=== PATIENT | female | born 1945 | race Caucasian/White ===

== ENCOUNTER 2019-02-24 18:15 | Inpatient (IN) | payer MEDICARE, OTHER, SELFPAY ==
[2018-07-10 15:48] VITALS: BMI 20.9
[2019-02-24] VITALS (10 sets, daily range): BP systolic 91–105; BP diastolic 56–70; PULSE 80–95; RESP 14–95; TEMP 36.4–36.9; O2SAT 96–99; BMI 19.0; BMI 19.3
--- NOTE | 2019-02-24 18:35 | CT_ITS ---
STUDY: CT ABDOMEN AND PELVIS WITH CONTRAST REASON FOR EXAM: Female, 74 years old. FEVER, BILIARY DRAIN INFECTION, HX OVARIAN CA RADIATION DOSAGE (If Supplied By Facility): CTDIvol = ( 5.13 ) mGy, DLP = ( 283.82 ) mGycm TECHNIQUE: Transaxial images were obtained from the dome of the diaphragm to the symphysis pubis without oral contrast. 100 IV Isovue 300 was administered. Sagittal and coronal images were reconstructed. Individualized dose optimization techniques were used for this CT. COMPARISON: None. FINDINGS: There is a small right pleural effusion. The visualized portions of the heart are within normal limits. There are multiple low density lesions of the liver and spleen. The largest lesion measures up to 3.8 cm. The gallbladder is contracted. A cholecystostomy tube extends to the gallbladder. No pericholecystic fluid. Normal spleen. Normal pancreas. Normal bilateral adrenal glands. No hydronephrosis. There are nonobstructing left renal calculi. Normal visualized stomach. Normal small intestine. There are surgical anastomoses of the right colon and rectum. The appendix is visualized and appears normal. Normal abdominal aorta. Normal inferior vena cava. Normal retroperitoneum. Normal urinary bladder. There is absence of the uterus consistent with a prior hysterectomy. Normal abdominal wall. Normal osseous structures. CT/Abdomen/Pelvis W IV Cont ONLY IMPRESSION: 1. No bowel obstruction or acute inflammatory process. 2. Hepatic and splenic masses compatible with metastasis. 3. Small right pleural effusion. 4. Cholecystostomy tube with nondistended gallbladder. 5. Nonobstructing left renal calculi. 6. Comparison no prior imaging studies recommended. Electronically Signed: Son Brooke MD (Brooks) at 20:36 EDT , Service support ,
--- NOTE | 2019-02-24 18:36 | RAD_ITS ---
STUDY: X-RAY CHEST REASON FOR EXAM: Female, 74 years old. Fever, patient on chemotherapy TECHNIQUE: AP COMPARISON: None. FINDINGS: Right chest port is identified with tip extending to the cavoatrial junction. The lungs are clear and expanded. There is mild thickening of the right costophrenic angle. Normal size heart. Normal mediastinum and pedrito. Normal visualized pulmonary arteries. There is atherosclerosis of the aortic arch. Normal visualized thoracic spine. Normal visualized ribs, clavicles, and shoulders. There is no demonstrated abnormality of the visualized soft tissue structures of the upper abdomen. RAD/Chest 1 View (Portable) IMPRESSION: No airspace consolidation. Trace right pleural effusion. No comparison study. Electronically Signed: Son Brooke MD (Brooks) at 19:01 EDT , Service support ,
--- NOTE | 2019-02-24 18:36 | EKG12_ITS ---
Test Reason : FEVER Blood Pressure : / mmHG Vent. Rate : 090 BPM Atrial Rate : 090 BPM P-R Int : 104 ms QRS Dur : 096 ms QT Int : 394 ms P-R-T Axes : -16 029 -62 degrees QTc Int : 481 ms Sinus rhythm with short NV RSR' or QR pattern in V1 suggests right ventricular conduction delay Nonspecific T wave abnormality Prolonged QT Abnormal ECG Confirmed by LAURE JOSEPH, HKALIF ([id number]), book editor OLIVA WATTS ([id number]) on 02/26/2019 9:31:23 AM Referred By: Ramiro Blanc Confirmed By:KHALIF KELSEY MD
--- NOTE | 2019-02-24 18:39 | ED.RN ---
NO OLD EKGS IN MUSE
[2019-02-24] MEDS: 0.9% Normal Saline 1,000 ML 999 ML IV ×2 (19:21→21:55)
[2019-02-24 19:29] LABS: Absolute Lymphocyte Count 0.58 X10^3/uL (0.83-4.51); Absolute Neutrophil Count 15.4 X10^3/uL (2.0-7.7); Basophil% 0.6 % (0-1); Hematocrit 31.6 % (37-47); Hemoglobin 10.4 g/dL (12.0-15.0); Lymphocyte # 0.58 X10^3/ul (4.0); Lymphocyte % 3.2 % (19-41); Mean Corp Hgb Conc 32.9 g/dL (32-36); Mean Corpuscular Hgb 29.9 pg (27.0-32.0); Mean Corpuscular Volume 90.8 fL (81-99); Mean Platelet Vol. 9.5 fl (6.2-12.0); Monocyte# 1.52 X10^3/uL; Monocyte% 8.5 % (0-10); NRBC Flagged by Analyzer 0 % (0-5); Neutrophil # 15.42 X10^3/uL (2.7-7.7); Neutrophil % 86.4 % (47-70); POSITIVE DIFFERENTIAL YES; Platelet Count 250 K/mm3 (150-450); RBC Distribution Width CV 18.6 % (11.6-14.6); RBC Distribution Width SD 61.8 fl (35.1-43.9); Red Blood Count 3.48 M/mm3 (4.2-5.4); White Blood Count 17.9 K/mm3 (4.4-11.0)
[2019-02-24 19:32] LABS: Differential Indicated SCAN CRITERIA MET
[2019-02-24 19:35] LABS: International Normalized Ratio 1.2; Prothrombin Time (Protime)PT. 15.3 SECONDS (11.7-14.9)
[2019-02-24 19:36] LABS: Partial Thromboplast Time 33.1 Seconds (24.1-36.2)
[2019-02-24 19:45] LABS: ALB/GLOB Ratio 0.7 RATIO (0.9-2.4); AST(SGOT) 29 U/L (15-37); Alanine Aminotransfer ALT/SGPT 26 U/L (13-56); Albumin, Serum 2.7 g/dL (3.2-5.0); Alkaline Phosphatase 335 U/L (45-117); Anion Gap 12 (5-15); BUN 9 mg/dL (7-18); BUN/Creat Ratio 14.2 RATIO (10-20); Calcium,Total 8.4 mg/dL (8.5-10.1); Chloride 103 mmol/L (98-107); Creatinine, Serum 0.63 mg/dL (0.55-1.02); EST Glomerular Filtration Rate 98 mL/min (>60); Est Glom Filt Rate - Afr Amer 119 mL/min (>60); Estimated Creatinine Clearance 37.31 ml/min; Glucose 110 mg/dL (74-106); Protein, Total 6.7 g/dL (6.4-8.2); Sodium Level 137 mmol/L (136-145)
[2019-02-24 19:54] LABS: Differential Comment SCANNED
[2019-02-24 20:12] LABS: Lactic Acid 1.2 mmol/L (0.4-2.0)
[2019-02-24 21:00] LABS: Bacteria 0 SEEN /hpf (None Seen); Mucous, Urine 0 SEEN /hpf (<or=2+); Red Blood Cells-Urine 0 SEEN /hpf (0-5); Squamous Epithelial Cells - UA 0 SEEN /hpf (5-10); White Blood Cells 0 SEEN /hpf (0-5)
[2019-02-24 21:01] LABS: Color, Urine Yellow (Yellow); Glucose, Dipstick Normal (Normal); Ketone-Dipstick 5 mg/dl (Negative); Leukocyte Esterase-Dipstick Negative /ul (Negative); Nitrite-Dipstick Negative (Negative); Occult Blood-Urine Negative /ul (Negative); Protein-Dipstick Negative (Negative); Specific Gravity, Urine 1.005 (1.002-1.030); Urine Bilirubin Dipstick Negative (Negative); Urine Clarity Clear (Clear); Urine Urobilinogen Normal (Normal); Urine pH 6.5 (5.0 - 8.0)
--- NOTE | 2019-02-24 22:10 | PCM.HP.STD ---
Problem List (1) Biliary tract infection Status: Acute History of Present Illness Date of Admission: 02/24/19 Chief Complaint: fever The patient is a 74 year old F with a significant history of metastatic ovarian cancer status post TABSO and chemotherapy who presents to the emergency department because of a fever of 102F. Associated with her symptoms is chills; poor appetite; generalized weakness; malaise. Patient has biliary tube which was placed because of gallbladder infection. She reports that the biliary tube gets change every 6 weeks. It was placed at the hospital in [place]. She reported that at this time the biliary tube is not giving out any drainage. However, she attributes her current symptoms to infection at her biliary tube stating that anytime the tube is changed she has an infection. She reports pain at her biliary tube insertion site for the last three days. On presentation the biliary tube insertion site has declined to only soreness. Also patient has chronic nausea . Reports chronic diarrhea and chronic constipation. At this point she has loose stools. At the Emergency department patient was found to have leukocytosis and bandemia. However she received Neulasta about 12 days ago. Patient follows up with Dr. Rolon, oncologist. Reportedly patient was started on ciprofloxacin 2 days ago. She reported that about a week and a half ago she received IV Levaquin which was followed followed by p.o. Levaquin. Antibiotics was given because her biliary tube got infected. At the emergency department patient was given vancomycin and Zosyn and the case was discussed with Dr. Olinda Breen, General Surgery who is interested in following patient. At the Emergency department patient was noted to have low blood pressure. However, patient reports a history of low blood pressure with blood pressures typically in the 90s. 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 Allergies magnesium Allergy (Verified 02/24/19 18:16) Nausea Sulfa (Sulfonamide Antibiotics) Allergy (Verified 02/24/19 18:17) rash hives Home Medications: Ambulatory Orders Medication Instructions Recorded diphenoxylate-atropine 2.5 1 tab PO Q6H PRN tab 04/09/18 mg-0.025 mg tablet gabapentin 300 mg capsule 300 mg PO BID #60 cap 04/09/18 Acetaminophen/Diphenhydramine 1 ea PO QHS 02/24/19 [Tylenol Pm Ex-Strength Caplet] Cholecalciferol (Vitamin D3) 5,000 unit PO DAILY 02/24/19 [Vitamin D3] Ciprofloxacin HCl 500 mg PO BID 02/24/19 Fexofenadine/Pseudoephedrine 1 ea PO DAILY 02/24/19 [Tania-D 24 Hour Tablet] Levothyroxine Sodium [Synthroid] 75 mcg PO DAILY 02/24/19 Loperamide [Imodium] 2 mg PO Q2H PRN PRN 02/24/19 Multivitamin [Daily Multiple 1 ea PO DAILY 02/24/19 Vitamin] Omeprazole 20 mg PO DAILY 02/24/19 Ondansetron HCl 8 mg PO BID PRN 02/24/19 Potassium Chloride 20 meq PO DAILY 02/24/19 Senna [Senokot] 1 tab PO DAILY 02/24/19 Sod Phos Di, [place]/K Phos [place] 250 mg PO BID 02/24/19 [Phospha 250 Neutral Tablet] Vitamin B Complex [B Complex] 1 ea PO DAILY 02/24/19 proCHLORPERazine tablet [Compazine 10 mg PO Q6H PRN PRN 02/24/19 tablet] Surgical History: Surgical History (Last Reviewed 02/24/19 @ 23:21 by Ramiro Blanc MD) Hx of ovarian cancer Z85.43 S/P BRENDA-BSO Z90.710, Z90.722, Z90.79 most large intestines removed partial stomach removal Lives: Spouse/ Significant Other Smoking Status: Never smoker Alcohol: Rare - *Family History Maternal Family History: Family History (Last Reviewed 02/25/19 @ 00:48 by Ramiro Blanc MD) Aunt Breast cancer Father Colon cancer Grandfather Colon cancer Review of Systems Constitutional: Reports: Anorexia, Chills, Fever, Malaise, Weakness, Fatigue. Denies: Weight Change HEENT: Denies: Head Aches, Sinus Congestion, Sinus Drainage Cardiovascular: Denies: Chest Pain, Palpitations Respiratory: Denies: Cough, Shortness of breath at rest, Sputum production Gastrointestinal: Reports: Abdominal Pain - Pain at biliary tube insertion site, Diarrhea, Nausea. Denies: Vomiting Genitourinary: Denies: Dysuria Musculoskeletal: Denies: Joint Pain, Joint Tenderness Skin: Denies: Rash, Wounds Neurological: Denies: Numbness, Tingling, Focal weakness Psychiatric: Denies: Anxiety, Depression, Homicidal Ideations, Suicidal Ideations Hematologic/ Lymphatic: Denies: Easy Bruising, Easy Bleeding VTE Information - Inpt Only VTE Present on Admission: No VTE Mechan Device Prophylaxis: None VTE Pharm Prophylaxis ordered?: Yes Patient Problems: Active and Suspected Problems (Last Reviewed 02/24/19 @ 23:21 by Ramiro Blanc MD) Biliary tract infection (Acute) - Physical Exam General: Alert, Oriented x3, Cooperative HEENT: Atraumatic, PERRLA, EOMI, Normocephalic Neck: Supple, No JVD, Negative Carotid Bruits Lungs: Clear to auscultation, Normal air movement Cardiovascular: Regular rate, No murmurs Abdomen: Bowel Sounds Present, Soft, Hypoactive Bowel Sounds, - Extremities: No edema, Capillary Refill Less than 3 Seconds Skin: No rashes, - - Mild redness at incision site of biliary tube; dark brown pus almost dried drainage noted. Mild redness at site; tender. Musculoskeletal: No Tenderness to Palpation of Joints or Extremities Neurological: Cranial nerves II-XII grossly intact Psych/Mental Status: Normal Affect, Appropriate Vital Signs Temp Pulse Resp BP Pulse Ox 97.6 F L 80 14 98/56 L 98 02/24/19 21:54 02/24/19 21:54 02/24/19 21:54 02/24/19 21:54 02/24/19 21:54 Oxygen Delivery Method Room Air Weight: 47.174 kg Body Mass Index (BMI) 19.0 Intake and Output for Last 24 Hours 02/22/19 02/23/19 02/24/19 23:59 23:59 23:59 Intake Total 1000 / 1000 Balance 1000 / 1000 Laboratory Tests Past 24 Hrs 02/24/19 02/24/19 02/24/19 19:15 19:15 19:15 WBC 17.9 H RBC 3.48 L Hgb 10.4 L Hct 31.6 L MCV 90.8 MCH 29.9 MCHC 32.9 RDW Std Deviation 61.8 H RDW Coeff of Dafne 18.6 H Plt Count 250 MPV 9.5 Immature Gran % (Auto) 1.300 H Neut % (Auto) 86.4 H Lymph % (Auto) 3.2 L [place] % (Auto) 8.5 Eos % (Auto) 0.0 Baso % (Auto) 0.6 Absolute Neuts (auto) 15.4 H Absolute Lymphs (auto) 0.58 L Nucleated RBC % 0 Differential Comment SCANNED Diff Path Review May foll PT 15.3 H INR 1.2 APTT 33.1 Sodium 137 Potassium 3.0 L Chloride 103 Carbon Dioxide 22.0 Anion Gap 12 BUN 9 Creatinine 0.63 Estim Creat Clear Calc 37.31 Est GFR (MDRD) Af Amer 119 Est GFR (MDRD) Non-Af 98 BUN/Creatinine Ratio 14.2 Glucose 110 H Lactic Acid Calcium 8.4 L Total Bilirubin 0.30 AST 29 ALT 26 Alkaline Phosphatase 335 H Total Protein 6.7 Albumin 2.7 L Globulin 4.0 Albumin/Globulin Ratio 0.7 L Urine Color Urine Clarity Urine pH Ur Specific [place] Urine Protein Urine Glucose (UA) Urine Ketones Urine Occult Blood Urine Nitrite Urine Bilirubin Urine Urobilinogen Ur Leukocyte Esterase Urine RBC Urine WBC Ur Squamous Epith Cells Urine Bacteria Urine Mucus 02/24/19 02/24/19 19:15 20:54 WBC RBC Hgb Hct MCV MCH MCHC RDW Std Deviation RDW Coeff of [place] Plt Count MPV Immature Gran % (Auto) Neut % (Auto) Lymph % (Auto) [place] % (Auto) Eos % (Auto) Baso % (Auto) Absolute Neuts (auto) Absolute Lymphs (auto) Nucleated RBC % Differential Comment Diff Path Review PT INR APTT Sodium Potassium Chloride Carbon Dioxide Anion Gap BUN Creatinine Estim Creat Clear Calc Est GFR (MDRD) Af Amer Est GFR (MDRD) Non-Af BUN/Creatinine Ratio Glucose Lactic Acid 1.2 Calcium Total Bilirubin AST ALT Alkaline Phosphatase Total Protein Albumin Globulin Albumin/Globulin Ratio Urine Color Yellow Urine Clarity Clear Urine pH 6.5 Ur Specific [place] 1.005 Urine Protein Negative Urine Glucose (UA) Normal Urine Ketones 5 H Urine Occult Blood Negative Urine Nitrite Negative Urine Bilirubin Negative Urine Urobilinogen Normal Ur Leukocyte Esterase Negative Urine RBC 0 SEEN Urine WBC 0 SEEN Ur Squamous Epith Cells 0 SEEN Urine Bacteria 0 SEEN Urine Mucus 0 SEEN Assessment/Plan All Active Problems (Last Reviewed 02/24/19 @ 23:21 by Ramiro Blanc MD) Biliary tract infection (Acute) The patient is a 74 year old F with a significant history of metastatic ovarian cancer status post TABSO and chemotherapy who presents emergency department because of a fever ; chills; poor appetite; generalized weakness; malaise; and pain at biliary incision site; leukocytosis and bandemia on Neulasta consistent with probable biliary tube infection. Probably acute infection of Biliary tube At the emergency department there was a pus at the biliary site insertion site. Culture and PCR of the pus. Patient received vancomycin and Zosyn at the emergency department. We will continue patient on Zosyn for now. Gentle IV hydration. Culture and blood culture was obtained in the emergency department; follow. Not classified as sepsis since leukocytosis is probably from Neulasta. Trend CBC and BMP. General Surgery consulted. Hypokalemia On presentation her potassium was 3.0. Patient received potassium 40 mg in the emergency department. We will give additional 40 mg by IV. Continue home potassium 20 mEq daily Check magnesium level History of metastatic ovarian cancer Patient follows up with Dr. Carvajal Continue outpatient follow-up. Nausea and diarrhea Reported at home she takes Imodium. Imodium ordered. Zofran as needed. Of note her QTC is 481; mildly prolonged in a woman. Insomnia Reports taking Tylenol PM at home. Tylenol pm nightly as needed ordered. DVT prophylaxis Subcutaneous heparin for now as we await Surgery to evaluate patient Code Visit Inpatient E&M: 12977 Init Hosp L3
--- NOTE | 2019-02-24 22:24 | ED.DCSUM_ITS ---
- ER Visit Summary Date of Service: 02/24/19 Chief Complaint: Fever History of Present Illness: The patient is a 74 F who presents with a fever that started this evening. Maximum temperature was 102.4. Patient has a history of metastatic ovarian cancer. Her last chemotherapy was about a week and a half a go. She also has a history of a gallbladder attack in September of this year. She had a biliary drain placed at that time at [facility]. She is concerned that might be the source of her infection. She is not having abdominal pain or GI symptoms. She is not having output from the drain. Patient was on Levaquin last week for possible infection there. Physical Examination: Afebrile and vital signs unremarkable. Blood pressure borderline 98/56. Patient is mentating well. No acute distress. HEENT exam unremarkable. Heart regular. Lungs clear. Abdomen soft and nontender. Drain is in place. Skin appears normal without jaundice. No sign of rash or infection. Test Results: White count is 17.9 and hemoglobin is 10.4. Potassium 3.0 and glucose 110. Alkaline phosphatase 335. Coags, lactate, urinalysis unremarkable. EKG showed sinus rhythm at a rate of 90 with nonspecific T wave and ST segment changes. QTc was 481. Chest x-ray showed a trace right pleural effusion. CT abdomen showed no acute findings. She has metastatic disease as well as a small right pleural effusion. The tube was visualized and a nondistended gallbladder. Emergency Department Course and Treatment: Patient was treated with IV fluids. Her work-up showed leukocytosis, and this combined with her fever is concerning for sepsis, but we do not have a source at this time. Her surgical care was discussed with Dr. Breen who was on-call. This does not appear to be a surgical process, but she will be available for consultation. She advised to clear liquid diet and antibiotic coverage. Started Zosyn and vancomycin. She will evaluate the patient tomorrow, or her partners will evaluate the patient tomorrow. Her potassium was 3.0. This was replaced. The remainder of her testing was all fairly unremarkable. She does not have signs of shock. Cultures pending. Patient was discussed with the hospitalist who will admit for further care. Treatment Plan: As above Disposition: Admission Impression: 1. Fever 2. Hypokalemia 3. Metastatic ovarian cancer This note was generated with Dragon dictation software. It may contain incorrect words, spelling, and punctuation that were not noted in review of the chart prior to signing ED Disposition - Plan for ED Patient: Referrals: Georgie Ewing MD [Primary Care Provider] -
[2019-02-24 23:49] LABS: Magnesium 1.1 mg/dL (1.6-2.6)
[2019-02-25] VITALS (7 sets, daily range): BP systolic 85–116; BP diastolic 55–58; PULSE 62–93; RESP 14–16; TEMP 36.3–36.8; O2SAT 96–99
[2019-02-25] MEDS: Potassium Chloride 10mEq/100mL 10 MEQ/100 ML IV.SOLN. 100 MEQ IV BOLUS ×4 (00:14→03:28)
[2019-02-25] MEDS: Lactated Ringers 1,000 ML 75 ML IV (00:14)
[2019-02-25 01:03] LABS: M R Staph aureus DNA By PCR Negative (Negative); Probe Check PASS; Specimen Processing Control PASS; Staph aureus DNA By PCR NEGATIVE (Negative)
[2019-02-25] MEDS: Levothyroxine 75 MCG Tablet PO (04:19)
[2019-02-25] MEDS: 0.9% NaCl VAD Flush IV ×3 (05:33→21:29)
[2019-02-25] MEDS: 0.9% NaCl IVPB Med Flush (250 mL) 15 ML IV (05:35)
[2019-02-25 05:42] LABS: Absolute Lymphocyte Count 0.65 X10^3/uL (0.83-4.51); Absolute Neutrophil Count 16.5 X10^3/uL (2.0-7.7); Basophil# 0.06 X10^3/uL; Basophil% 0.3 % (0-1); Eosinophil# 0.01 X10^3/uL; Eosinophils% 0.1 % (0-5); Lymphocyte # 0.65 X10^3/ul (4.0); Lymphocyte % 3.5 % (19-41); Mean Corp Hgb Conc 33.3 g/dL (32-36); Mean Corpuscular Hgb 30.4 pg (27.0-32.0); Mean Corpuscular Volume 91.2 fL (81-99); Mean Platelet Vol. 9.7 fl (6.2-12.0); Monocyte# 1.31 X10^3/uL; NRBC Flagged by Analyzer 0 % (0-5); Neutrophil # 16.52 X10^3/uL (2.7-7.7); Neutrophil % 87.7 % (47-70); Platelet Count 277 K/mm3 (150-450); RBC Distribution Width CV 18.6 % (11.6-14.6); RBC Distribution Width SD 62.2 fl (35.1-43.9); Red Blood Count 3.29 M/mm3 (4.2-5.4); White Blood Count 18.8 K/mm3 (4.4-11.0)
[2019-02-25 06:13] LABS: Anion Gap 8 (5-15); BUN 5 mg/dL (7-18); Calcium,Total 8.5 mg/dL (8.5-10.1); Chloride 107 mmol/L (98-107); EST Glomerular Filtration Rate 129 mL/min (>60); Est Glom Filt Rate - Afr Amer 156 mL/min (>60); Estimated Creatinine Clearance 37.81 ml/min; Glucose 85 mg/dL (74-106); Potassium 4.1 mmol/L (3.5-5.1); Sodium Level 138 mmol/L (136-145)
--- NOTE | 2019-02-25 07:17 | CON.PCM_ITS ---
- Consult Date of Consult: 02/25/19 - Reason for Consult Chief Complaint: fever, elevated WBC History of Present Illness: 74 y/o WF with metastatic ovarian cancer, status post multiple abdominal surgeries, presents with fevers. She had a cholecystotomy drain placed for cholecystitis at [facility] in September of this year. Has had multiple changes of this tube - last was 02/11/19. She has this tube intermittently draining, notes minimal drainage in past several days. Has been feeling generalized weakness and having fevers. Had been given levaquin in Dr. Rolon's office, but presented to [facility] ED with persistent fevers. Underwent CT scan which showed no intraabdominal leakage. Found to have elevated WBC of 17.9K. This morning it is 18.8K. Patient has minimal tenderness in the area, no changes from her baseline. Followed by Dr. Rolon for palliative chemotherapy. PAST MEDICAL HISTORY ? BRCA negative ?? myRisk negative ? Edema ? ? Hypercholesterolemia 2008 ? Hypothyroid 2006 ? IBS (irritable bowel syndrome) 1995 ? rapid small bowel, slow large bowel ? Ovarian cancer (HCC) - metastatic ? ? spleen, stomach, colon, fallopian tubes, diaphargam, liver cancer ? Peritoneal cyst ? peritoneal cystic mass ?? PAST?SURGICAL?HISTORY ? ABDOMINAL SURGERY HX ? 09/14/2016 ? takedown of ileostomy, enterolysis ? BSO W/ABD HYSTER & DEBULKING ? 11/06/2015 ? Right hemicolectomy, sigmoidectomy, Colorectal anastamosis, SBR, ileostomy, Gastrectomy + Bilroth2 anastamosis ? COLONOSCOPY ? 03/06/2017 ? D&C, DIAG AND/OR THERAPEUTIC ? 1968 ? SAB ? LAPAROSCOPY DIAGNOSTIC ? 2008 ? Diagnostic laparoscopy, mini laparotomy, lysis of adhesions, excision of peritoneal cystic mass. ? PARTIAL REMOVAL OF STOMACH ? 11/06/2015 ? Distal gastrectomy & Bilroth 2 anastamosis along with ovarian cancer debulking surgery ? PAST SURGICAL HISTORY OF ? 12/24/2015 ? 1.) Right IJ ultrasound guided cannulation. 2.) Bioflo MediPort insertion. ? PICC LINE INSERT/CONSULT ? 11/13/2015 ? ROTATOR CUFF REPAIR ? 2012 ? TUBAL LIGATION, ? 1973 ? MEDICATIONS: oxyCODONE-acetaminophen (PERCOCET) 5-325 mg tablet ondansetron (ZOFRAN) 8 mg tablet metoclopramide HCl (REGLAN) 10 mg tablet omeprazole (PRILOSEC) 20 mg capsule acetaminophen/diphenhydramine (TYLENOL PM ORAL) phosphorus (J-VDHP-[id number]) 250 mg tablet sennosides (SENNA LAX ORAL) potassium chloride ER (K-DUR, KLOR-CON) 20 mEq tablet Loperamide HCl (IMODIUM) 2 mg tab prochlorperazine (COMPAZINE) 10 mg tablet lipase/protease/amylase (CREON ORAL) Lactobac no.41/Bifidobact no.7 (PROBIOTIC-10 ORAL) SUMAtriptan (IMITREX) 100 mg tablet VITAMIN B COMPLEX (B COMPLEX 1 ORAL) gabapentin (NEURONTIN) 300 mg capsule levothyroxine (SYNTHROID) 75 mcg tablet MULTIVITAMIN ORAL Cholecalciferol, Vitamin D3, 5,000 unit tab Allergies: magnesium, sulfa Social history: TOB use denies ROS: Constitutional: Has fevers, denies episodes of night sweats. Neuro: Denies KEITH, vertigo. HEENT: No recent change in voice, vision or hearing. Resp: Denies cough, wheeze and hemoptysis. Denies shortness of breath at rest. CVS: Denies exertional chest pain, PND, orthopnea. Occasional leg swelling. GI:?has loose bowel movements : Denies dysuria or gross hematuria. No symptoms of bladder outlet obstruction. Endo: Denies hot flashes. Denies polyuria and polydipsia. Denies heat and cold intolerance. Musculoskeletal: Denies bone, back, joint and muscular pain. Derm: Denies rash. Denies jaundice and diffuse pruritis. Heme: Denies unusual bleeding and unexplained bruising. Psych: Normal mood. ? PHYSICAL EXAM: ? VITALS:?Blood pressure 106/56, pulse 93, temperature 98F. Thin, but well-appearing and in no acute distress. EYES: Sclerae are anicteric bilaterally. ENT: Oral mucosa is unremarkable. There is no sign of thrush or mucositis. ? NECK: Supple. LYMPHATIC: There is no palpable cervical, supraclavicular, axillary or inguinal adenopathy. ? RESPIRATORY: Inspiratory breath sounds are of normal intensity in all ferrera. No rales, wheezes or rhonchi. No exam evidence of effusion. CARDIOVASCULAR: Rhythm is regular. Normal intensity S1/S2. There is no gallop or murmur. ABDOMEN: Cholecystostomy tube in place. Right upper?quadrant tenderness. No peritoneal signs. No fluid wave. Extremities: No swelling or edema currently. ? SKIN: No jaundice or rash. NEUROLOGIC: computer security coordinator II-XII are grossly intact. No focal motor weakness. DTRs are symmetric and normal. MUSCULOSKELETAL: No muscle wasting. IMPRESSION: elevated WBC presence of cholecystotomy tube fever DISCUSSION/PLAN: I have discussed the above with the patient. There are no surgical options that I can offer her at this point She could have a tube change done by our radiologist, if she wishes. I do not believe that this will not prevent future infections (and may not help her present situation). Continue IV antibiotics, consider consult to Dr. Rolon for further options/evaluation/treatment. I have answered all questions to the patient?s satisfaction and the patient has no further questions.
[2019-02-25] MEDS: Loperamide 2 MG Capsule PO ×2 (07:48→14:20)
[2019-02-25] MEDS: Acetaminophen 325 MG Tablet 650 MG PO ×3 (07:48→21:29)
--- NOTE | 2019-02-25 10:46 | PCM.PN.HOSP ---
Patient Problems: Active and Suspected Problems (Last Reviewed 02/25/19 @ 00:48 by Ramiro Blanc MD) Biliary tract infection (Acute) Subjective: Patient seen and examined. She was admitted with complaint of fever from 102 Fahrenheit while she was at home. However not admission, fever had resolved. Patient has a history of metastatic ovarian cancer status post total abdominal hysterectomy and bilateral salpingo-oophorectomy as well as colectomy. She states she had a gallbladder infection last year but due to concerns of cancer spreading, she did have a cholecystectomy. She has had a biliary stent since then which is periodically changed at [facility]. She states it was changed about last week and subsequently noted that she was having drainage from it. She was put on Levaquin by her oncologist and she is completed the course but this had a fever overnight. He is currently on IV Zosyn. Patient has leukoplakia of left leg and feels well. He does not work. She denies any cough or chest pain, shortness of breath, abdominal pain or any pus from the site of the biliary tube insertion. 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 Review of systems otherwise negative. Vitals/I&O's: Vital Signs Temp Pulse Resp BP Pulse Ox 97.8 F 85 16 85/58 L 97 02/25/19 10:14 02/25/19 10:14 02/25/19 10:14 02/25/19 10:14 02/25/19 10:14 Oxygen Delivery Method Room Air Weight: 105 lb 6.095 oz Body Mass Index (BMI) 19.3 Intake and Output for Last 24 Hours 02/23/19 02/24/19 02/25/19 23:59 23:59 23:59 Intake Total 806.58 / 806.58 Balance 806.58 / 806.58 General: Alert, Oriented x3, Cooperative, No apparent distress HEENT: Atraumatic, PERRLA, EOMI, Normocephalic Oral: Moist Mucosa Neck: Supple, No JVD, Negative Carotid Bruits Lungs: Clear to auscultation, Normal air movement Cardiovascular: Regular rate, Regular Rhythm, Normal S1, Normal S2, No murmurs Abdomen: Bowel Sounds Present, Soft, Non Tender, Non-Distended, No Hepato-splenomegaly, - - biliary tube in place, no drainage visualised Extremities: No clubbing, No cyanosis, No edema, Capillary Refill Less than 3 Seconds Skin: No rashes, No breakdown Musculoskeletal: No Tenderness to Palpation of Joints or Extremities Lymphatic: No Cervical, Supraclavicular, or Inguinal Adenopathy Neurological: Cranial nerves II-XII grossly intact, Neuro grossly intact, Motor Exam 5/5 strength throughout Psych/Mental Status: Normal Affect, Appropriate, Alert and oriented to time, place, person, mood and affect Laboratory Results 02/24/19 19:15: WBC 17.9 H, RBC 3.48 L, Hgb 10.4 L, Hct 31.6 L, MCV 90.8, MCH 29.9, MCHC 32.9, RDW Std Deviation 61.8 H, RDW Coeff of Dafne 18.6 H, Plt Count 250, MPV 9.5, Immature Gran % (Auto) 1.300 H, Neut % (Auto) 86.4 H, Lymph % (Auto) 3.2 L, Luce % (Auto) 8.5, Eos % (Auto) 0.0, Baso % (Auto) 0.6, Absolute Neuts (auto) 15.4 H, Absolute Lymphs (auto) 0.58 L, Nucleated RBC % 0, Differential Comment SCANNED, Diff Path Review October02/24/19 19:15: PT 15.3 H, INR 1.2, APTT 33.1 02/24/19 19:15: Sodium 137, Potassium 3.0 L, Chloride 103, Carbon Dioxide 22.0, Anion Gap 12, BUN 9, Creatinine 0.63, Estim Creat Clear Calc 37.31, Est GFR (MDRD) Af Amer 119, Est GFR (MDRD) Non-Af 98, BUN/Creatinine Ratio 14.2, Glucose 110 H, Calcium 8.4 L, Total Bilirubin 0.30, AST 29, ALT 26, Alkaline Phosphatase 335 H, Total Protein 6.7, Albumin 2.7 L, Globulin 4.0, Albumin/Globulin Ratio 0.7 L 02/24/19 19:15: Lactic Acid 1.2 02/24/19 19:15: Magnesium 1.1 L 02/24/19 20:54: Urine Color Yellow, Urine Clarity Clear, Urine pH 6.5, Ur Specific [place] 1.005, Urine Protein Negative, Urine Glucose (UA) Normal, Urine Ketones 5 H, Urine Occult Blood Negative, Urine Nitrite Negative, Urine Bilirubin Negative, Urine Urobilinogen Normal, Ur Leukocyte Esterase Negative, Urine RBC 0 SEEN, Urine WBC 0 SEEN, Ur Squamous Epith Cells 0 SEEN, Urine Bacteria 0 SEEN, Urine Mucus 0 SEEN 02/24/19 22:56: S.aureus Protein A PCR NEGATIVE, MRSA (PCR) Negative 02/25/19 05:30: WBC 18.8 H, RBC 3.29 L, Hgb 10.0 L, Hct 30.0 L, MCV 91.2, MCH 30.4, MCHC 33.3, RDW Std Deviation 62.2 H, RDW Coeff of Dafne 18.6 H, Plt Count 277, MPV 9.7, Immature Gran % (Auto) 1.400 H, Neut % (Auto) 87.7 H, Lymph % (Auto) 3.5 L, Luce % (Auto) 7.0, Eos % (Auto) 0.1, Baso % (Auto) 0.3, Absolute Neuts (auto) 16.5 H, Absolute Lymphs (auto) 0.65 L, Nucleated RBC % 0 02/25/19 05:30: Sodium 138, Potassium 4.1, Chloride 107, Carbon Dioxide 23.0, Anion Gap 8, BUN 5 L, Creatinine 0.50 L, Estim Creat Clear Calc 37.81, Est GFR (MDRD) Af Amer 156, Est GFR (MDRD) Non-Af 129, BUN/Creatinine Ratio 10.0, Glucose 85, Calcium 8.5 Diagnostic Data Abdomen/Pelvis CT 02/24/19 18:35 IMPRESSION: 1. No bowel obstruction or acute inflammatory process. 2. Hepatic and splenic masses compatible with metastasis. 3. Small right pleural effusion. 4. Cholecystostomy tube with nondistended gallbladder. 5. Nonobstructing left renal calculi. 6. Comparison no prior imaging studies recommended. Electronically Signed: Son Brooke MD (Brooks) at 20:36 EDT , Service support , Chest X-Ray 02/24/19 18:36 IMPRESSION: No airspace consolidation. Trace right pleural effusion. No comparison study. Electronically Signed: Son Brooke MD (Brooks) at 19:01 EDT , Service support , Current Medications Acetaminophen (Tylenol) 650 mg PO Q6H PRN PRN PRN Reason: Mild Pain (1-3)/Temp > 100.7 F Last Admin: 02/25/19 07:48 Dose: 650 mg Documented by: Acetaminophen (Tylenol) 500 mg PO QHS PRN PRN Reason: INSOMNIA Cholecalciferol (Vitamin D) 5,000 unit PO DAILY [facility] Last Admin: 02/25/19 09:38 Dose: Not Given Documented by: Dextrose (D50w Syringe) 0 gm IV X1 PRN; Protocol PRN Reason: Hypoglycemia Diphenhydramine HCl (Benadryl) 25 mg PO QHS PRN PRN PRN Reason: INSOMNIA Gabapentin (Neurontin) 300 mg PO BID [facility] Last Admin: 02/25/19 09:38 Dose: Not Given Documented by: Glucagon () 1 mg IM .X1 PRN PRN Reason: Hypoglycemia Heparin Sodium (Beef Lung) () 50 units IV UD PRN PRN Reason: HEPARIN FLUSH Heparin Sodium (Porcine) (Heparin Na) 5,000 unit SC Q8 [facility] Last Admin: 02/25/19 05:39 Dose: Not Given Documented by: Piperacillin Sod/Tazobactam (Sod 3.375 gm/ Sodium Chloride) 50 mls @ 12.5 mls/hr IV Q8 [facility] Last Infusion: 02/25/19 06:00 Dose: 12.5 mls/hr Documented by: Lactated Ringer's () 1,000 mls @ 75 mls/hr IV .[id number] [facility] Stop: 02/25/19 12:31 Last Infusion: 02/25/19 05:35 Dose: 0 mls/hr Documented by: Sodium Chloride () 250 mls @ 15 mls/hr IV .[id number] PRN PRN Reason: SALINE FLUSH Last Infusion: 02/25/19 05:38 Dose: 0 mls/hr Documented by: Levothyroxine Sodium (Synthroid) 75 mcg PO DAILY@0600 [facility] Last Admin: 02/25/19 04:19 Dose: 75 mcg Documented by: Loperamide HCl (Imodium) 2 mg PO Q2H PRN PRN PRN Reason: LOOSE STOOLS Last Admin: 02/25/19 07:48 Dose: 2 mg Documented by: Multivitamins (Allbee W/C Caplet, Thera B Comp/[facility]) [facility] Admin: 02/25/19 07:37 Dose: Not Given Documented by: [facility]amin) [facility] Last Admin: 02/25/19 07:37 Dose: Not Given Documented by: Ondansetron HCl (Zofran) 4 mg IV Q8H PRN PRN PRN Reason: NAUSEA/VOMITING Oxycodone HCl (Oxyir) 5 mg PO Q6H PRN PRN PRN Reason: SEVERE PAIN (6-1010) Pantoprazole Sodium (Protonix) 20 mg PO DAILY [facility] Last Admin: 02/25/19 09:38 Dose: Not Given Documented by: Potassium Chloride [facility]Dur) [facility] Last Admin: 02/25/19 07:48 Dose: 20 meq Documented by: Prochlorperazine Maleate (Compazine Tablet) 10 mg PO Q6H PRN PRN PRN Reason: NAUSEA Sodium Chloride () 10 - 40 ml IV UD PRN PRN Reason: VAD FLUSH Last Admin: 02/25/19 05:33 Dose: 20 ml Documented by: Medical Necessity - Tobacco Use Smoking Status: Never smoker Assessment/Plan All Active Problems (Last Reviewed 02/25/19 @ 00:48 by Ramiro Blanc MD) Biliary tract infection (Acute) 1. Acute infection of biliary tube. per admitting note, there was pus at site of biliary insertion in ED samples of pus were sent to lab for culture received IV vancomycin and zosyn in ED, currently on only IV zosyn blood cultures also pending wbc is high, at 18.8 today; patient did receive Neulasta ~ 2 weeks ago, when her wbc was 1, according to her. Therefore, I find it difficult to believe that current elevated white cell count is only due to effect of Neulasta. Infection is likely playing a component and elevated WBC. Continue IV antibiotics for now. General surgery consulted and did not think that they should take out the tube for now. 2. Hypokalemia: Potassium was 3 on admission and is now 4.1. Will monitor. 3. Metastatic ovarian cancer: Stable. Follows up with Dr. Rolon. States she is due to have chemotherapy tomorrow. However patient counseled that this would likely not, in light of her acute current infection. 4. 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 5. Asymptomatic hypotension: Blood pressure is 85/58 and has been running in the 90s. Patient states that this is how her blood pressure usually runs and is normal for her. Will monitor closely. 6. Hypothyroidism: On Synthroid. DVT prophylaxis: Lovenox Code Visit Inpatient E&M: 63853 Subs Hosp L3
--- NOTE | 2019-02-25 11:45 | CASEMGMT ---
RN PABLO MAINTENANCE MAN CM to room to meet with patient for initial transition planning/care coordination assessment. JUAN SHAH introduced self and role at [facility]. Pt voices understanding and consents to assessment at this time. Pt resting in bed in no distress at this time. Pt is A/O at this time and answers all questions appropriately. Care providers, pharmacy, and demographics verified/updated at this time. PCP: Gildardo Specialists: Ольга Preferred Pharmacy: [facility] in [place] Insurance: TETE, AARP Prescription Benefit: Silver Scripts Living Will/HPOA: Has both LW and HCPOA, who is her , Sina. States will see if they can be brought in to [facility] to be placed on file. LNOK: Living Arrangements: Lives with her in 2-story home. FFSU. States is independent w/ADL's. changes her wound patch and assists w/cleaning and meals. Transportation: Pt states drives self and states no transportation concerns at this time. will drive her home @ D/C. DME: Denies using any DME and denies needs. HHC/SNF: No history of either, denies needs, and no needs identified. Pt wishes to return home and states has no concerns with going home at time of discharge. CM to follow for any discharge planning/needs. Pt voices no further concerns/needs at this time. Advised pt to ask for CM if any further questions/concerns/needs arise. Voices understanding. PLAN: Home w/spousal support and discharge plans in place. Kalpana OCHOA RN, CM
[2019-02-25 13:26] LABS: Pathologist Review Reviewed
--- NOTE | 2019-02-25 13:51 | CON.PCM_ITS ---
Reason for Consult: fever Consulted by: Dr. Neff History of Present Illness: The patient is a 74 year old F with metastatic ovarian cancer, on palliative chemo via R chest port, has biliary drain in place chronically. Last chemo about 2 weeks ago, given neulasta. Developed fever s/p chemo, given levaquin then course of cipro. Drain was changed the day prior to chemo. Finished abx on 02/18, fever at home again on 02/22, restarted cipro, came to hospital, admitted on zosyn after dose of vanc. Feeling well, wants to go home, no abd pain, no drainage from tube, no n/v/d, no focal complaints. No fever here. Full ROS performed and neg except as noted above. No issues with port. - Medical History Surgical History: reviewed Allergies/Adverse Reactions: Allergies magnesium Allergy (Verified 02/24/19 18:16) Nausea Sulfa (Sulfonamide Antibiotics) Allergy (Verified 02/24/19 18:17) rash hives Home Medications: Ambulatory Orders Medication Instructions Recorded diphenoxylate-atropine 2.5 1 tab PO Q6H PRN tab 04/09/18 mg-0.025 mg tablet gabapentin 300 mg capsule 300 mg PO BID #60 cap 04/09/18 Acetaminophen/Diphenhydramine 1 ea PO QHS 02/24/19 [Tylenol Pm Ex-Strength Caplet] Cholecalciferol (Vitamin D3) 5,000 unit PO DAILY 02/24/19 [Vitamin D3] Ciprofloxacin HCl 500 mg PO BID 02/24/19 Fexofenadine/Pseudoephedrine 1 ea PO DAILY 02/24/19 [Tania-D 24 Hour Tablet] Levothyroxine Sodium [Synthroid] 75 mcg PO DAILY 02/24/19 Loperamide [Imodium] 2 mg PO Q2H PRN PRN 02/24/19 Multivitamin [Daily Multiple 1 ea PO DAILY 02/24/19 Vitamin] Omeprazole 20 mg PO DAILY 02/24/19 Ondansetron HCl 8 mg PO BID PRN 02/24/19 Potassium Chloride 20 meq PO DAILY 02/24/19 Senna [Senokot] 1 tab PO DAILY 02/24/19 Sod Phos Di, Collin/K Phos [place] 250 mg PO BID 02/24/19 [Phospha 250 Neutral Tablet] Vitamin B Complex [B Complex] 1 ea PO DAILY 02/24/19 proCHLORPERazine tablet [Compazine 10 mg PO Q6H PRN PRN 02/24/19 tablet] Oxycodone HCl/Acetaminophen 5 - 325 mg PO BID PRN 02/25/19 [Percocet 5-325] - Social History SMOKING STATUS:: Never smoker Vital Signs Temp Pulse Resp BP Pulse Ox 98.2 F 80 14 116/56 L 99 02/25/19 11:23 02/25/19 11:23 02/25/19 11:23 02/25/19 11:23 02/25/19 11:23 Oxygen Delivery Method Room Air Weight: 47.8 kg Body Mass Index (BMI) 19.3 Microbiology Past 72 Hours 02/24/19 22:36 Gram Stain - Final Drainage Tube Laboratory Tests Past 24 Hrs 02/24/19 02/24/19 02/24/19 19:15 19:15 19:15 WBC 17.9 H RBC 3.48 L Hgb 10.4 L Hct 31.6 L MCV 90.8 MCH 29.9 MCHC 32.9 RDW Std Deviation 61.8 H RDW Coeff of Dafne 18.6 H Plt Count 250 MPV 9.5 Immature Gran % (Auto) 1.300 H Neut % (Auto) 86.4 H Lymph % (Auto) 3.2 L Collin % (Auto) 8.5 Eos % (Auto) 0.0 Baso % (Auto) 0.6 Absolute Neuts (auto) 15.4 H Absolute Lymphs (auto) 0.58 L Nucleated RBC % 0 Differential Comment SCANNED Diff Path Review Reviewed PT 15.3 H INR 1.2 APTT 33.1 Sodium 137 Potassium 3.0 L Chloride 103 Carbon Dioxide 22.0 Anion Gap 12 BUN 9 Creatinine 0.63 Estim Creat Clear Calc 37.31 Est GFR (MDRD) Af Amer 119 Est GFR (MDRD) Non-Af 98 BUN/Creatinine Ratio 14.2 Glucose 110 H Lactic Acid Calcium 8.4 L Magnesium Total Bilirubin 0.30 AST 29 ALT 26 Alkaline Phosphatase 335 H Total Protein 6.7 Albumin 2.7 L Globulin 4.0 Albumin/Globulin Ratio 0.7 L Urine Color Urine Clarity Urine pH Ur Specific [place] Urine Protein Urine Glucose (UA) Urine Ketones Urine Occult Blood Urine Nitrite Urine Bilirubin Urine Urobilinogen Ur Leukocyte Esterase Urine RBC Urine WBC Ur Squamous Epith Cells Urine Bacteria Urine Mucus S.aureus Protein A PCR MRSA (PCR) 02/24/19 02/24/19 02/24/19 19:15 19:15 20:54 WBC RBC Hgb Hct MCV MCH MCHC RDW Std Deviation RDW Coeff of Dafne Plt Count MPV Immature Gran % (Auto) Neut % (Auto) Lymph % (Auto) Collin % (Auto) Eos % (Auto) Baso % (Auto) Absolute Neuts (auto) Absolute Lymphs (auto) Nucleated RBC % Differential Comment Diff Path Review PT INR APTT Sodium Potassium Chloride Carbon Dioxide Anion Gap BUN Creatinine Estim Creat Clear Calc Est GFR (MDRD) Af Amer Est GFR (MDRD) Non-Af BUN/Creatinine Ratio Glucose Lactic Acid 1.2 Calcium Magnesium 1.1 L Total Bilirubin AST ALT Alkaline Phosphatase Total Protein Albumin Globulin Albumin/Globulin Ratio Urine Color Yellow Urine Clarity Clear Urine pH 6.5 Ur Specific [place] 1.005 Urine Protein Negative Urine Glucose (UA) Normal Urine Ketones 5 H Urine Occult Blood Negative Urine Nitrite Negative Urine Bilirubin Negative Urine Urobilinogen Normal Ur Leukocyte Esterase Negative Urine RBC 0 SEEN Urine WBC 0 SEEN Ur Squamous Epith Cells 0 SEEN Urine Bacteria 0 SEEN Urine Mucus 0 SEEN S.aureus Protein A PCR MRSA (PCR) 02/24/19 02/25/19 02/25/19 22:56 05:30 05:30 WBC 18.8 H RBC 3.29 L Hgb 10.0 L Hct 30.0 L MCV 91.2 MCH 30.4 MCHC 33.3 RDW Std Deviation 62.2 H RDW Coeff of Dafne 18.6 H Plt Count 277 MPV 9.7 Immature Gran % (Auto) 1.400 H Neut % (Auto) 87.7 H Lymph % (Auto) 3.5 L [place]lin % (Auto) 7.0 Eos % (Auto) 0.1 Baso % (Auto) 0.3 Absolute Neuts (auto) 16.5 H Absolute Lymphs (auto) 0.65 L Nucleated RBC % 0 Differential Comment Diff Path Review PT INR APTT Sodium 138 Potassium 4.1 Chloride 107 Carbon Dioxide 23.0 Anion Gap 8 BUN 5 L Creatinine 0.50 L Estim Creat Clear Calc 37.81 Est GFR (MDRD) Af Amer 156 Est GFR (MDRD) Non-Af 129 BUN/Creatinine Ratio 10.0 Glucose 85 Lactic Acid Calcium 8.5 Magnesium Total Bilirubin AST ALT Alkaline Phosphatase Total Protein Albumin Globulin Albumin/Globulin Ratio Urine Color Urine Clarity Urine pH Ur Specific [place] Urine Protein Urine Glucose (UA) Urine Ketones Urine Occult Blood Urine Nitrite Urine Bilirubin Urine Urobilinogen Ur Leukocyte Esterase Urine RBC Urine WBC Ur Squamous Epith Cells Urine Bacteria Urine Mucus S.aureus Protein A PCR NEGATIVE MRSA (PCR) Negative - Other Studies Radiology: [] reviewed Other Studies: [] Route of nutrition/ use of supplements: [] Nutritional Intake: [] IV Site: [] Coles Catheter: [] - Physical Exam General: Alert, Oriented x3, Cooperative, No apparent distress HEENT: Atraumatic, PERRLA, EOMI Neck: Supple, No Nodes Lungs: Clear to auscultation, Normal air movement Cardiovascular: Regular rate, Regular Rhythm, No murmurs Abdomen: Soft, Non Tender, Non-Distended, - - Drain in RUQ with no redness Extremities: No edema Skin: No rashes IV Site: Central Line, without redness Musculoskeletal: No Tenderness to Palpation of Joints or Extremities Neurological: Cranial nerves II-XII grossly intact - Assessment/Plan Antibiotics: [] Assessment/Plan: [] Active and Suspected Problems (Last Reviewed 02/25/19 @ 00:48 by Ramiro Blanc MD) Biliary tract infection (Acute) Fever at home with recent chemo, port and biliary drain in place - drain cx showing GPCs on gram stain. Cont zosyn. Staph aureus pcr neg. Will follow, thank you.
[2019-02-25] MEDS: Heparin Injection (Vial) 5,000 UNIT/ML VIAL 5000 UNIT SC (14:20)
[2019-02-25] MEDS: oxyCODONE 5 MG Tablet PO ×2 (14:20→21:28)
[2019-02-25] MEDS: proCHLORPERazine 5 MG Tablet 10 MG PO (18:54)
[2019-02-25] MEDS: SOD PHOS DI, MONO/K PHOS MONO 250 MG TABLET PO (20:20)
[2019-02-26 02:06] VITALS: BP 105/60; PULSE 83; RESP 16; TEMP 36.6; O2SAT 97
[2019-02-26] MEDS: oxyCODONE 5 MG Tablet PO (03:30)
[2019-02-26 05:40] LABS: Absolute Lymphocyte Count 0.83 X10^3/uL (0.83-4.51); Absolute Neutrophil Count 10.4 X10^3/uL (2.0-7.7); Basophil# 0.05 X10^3/uL; Basophil% 0.4 % (0-1); Eosinophil# 0.02 X10^3/uL; Eosinophils% 0.2 % (0-5); Hematocrit 29.4 % (37-47); Hemoglobin 9.7 g/dL (12.0-15.0); Lymphocyte # 0.83 X10^3/ul (4.0); Lymphocyte % 6.7 % (19-41); Mean Corpuscular Hgb 30.2 pg (27.0-32.0); Mean Corpuscular Volume 91.6 fL (81-99); Mean Platelet Vol. 9.3 fl (6.2-12.0); Monocyte# 0.95 X10^3/uL; Monocyte% 7.7 % (0-10); NRBC Flagged by Analyzer 0 % (0-5); Neutrophil # 10.36 X10^3/uL (2.7-7.7); Neutrophil % 83.9 % (47-70); Platelet Count 326 K/mm3 (150-450); RBC Distribution Width CV 18.9 % (11.6-14.6); Red Blood Count 3.21 M/mm3 (4.2-5.4); White Blood Count 12.3 K/mm3 (4.4-11.0)
[2019-02-26] MEDS: Levothyroxine 75 MCG Tablet PO (05:46)
[2019-02-26] MEDS: Heparin Injection (Vial) 5,000 UNIT/ML VIAL 5000 UNIT SC (05:46)
[2019-02-26] MEDS: 0.9% NaCl VAD Flush IV ×2 (05:48→11:01)
[2019-02-26] MEDS: Ondansetron 4 MG/2 ML Vial IV (05:56)
[2019-02-26 06:09] LABS: Anion Gap 7 (5-15); BUN 10 mg/dL (7-18); Calcium,Total 8.7 mg/dL (8.5-10.1); Chloride 107 mmol/L (98-107); Creatinine, Serum 0.56 mg/dL (0.55-1.02); EST Glomerular Filtration Rate 114 mL/min (>60); Est Glom Filt Rate - Afr Amer 138 mL/min (>60); Estimated Creatinine Clearance 37.81 ml/min; Glucose 73 mg/dL (74-106); Potassium 3.4 mmol/L (3.5-5.1); Sodium Level 140 mmol/L (136-145)
[2019-02-26] MEDS: Senna Tablet 1 TABLET PO (06:14)
[2019-02-26 07:08] VITALS: O2SAT 98
[2019-02-26 07:55] VITALS: BP 107/61; PULSE 84; RESP 16; TEMP 37.3; O2SAT 94
[2019-02-26] MEDS: Acetaminophen 325 MG Tablet 650 MG PO (08:02)
[2019-02-26] MEDS: Metoclopramide 10 MG Tablet PO (09:58)
--- NOTE | 2019-02-26 09:59 | PN.ID_ITS ---
Patient Problems: Active and Suspected Problems (Last Reviewed 02/25/19 @ 00:48 by Ramiro Blanc MD) Biliary tract infection (Acute) Subjective: Feeling well, no fever, no abd pain. - Physical Exam General: Alert, Cooperative Lungs: Clear to auscultation, Normal air movement Cardiovascular: Regular rate, Regular Rhythm Abdomen: Soft, Non Tender, Non-Distended Skin: No rashes Vital Signs Temp Pulse Resp BP Pulse Ox 99.1 F 84 16 107/61 94 02/26/19 07:55 02/26/19 07:55 02/26/19 07:55 02/26/19 07:55 02/26/19 07:55 Oxygen Delivery Method Room Air Weight: 47.8 kg Body Mass Index (BMI) 19.3 Intake and Output for Last 24 Hours 02/24/19 02/25/19 02/26/19 23:59 23:59 23:59 Intake Total / 74.58 / 74.58 Balance 74.58 / 74.58 Microbiology Past 72 Hours 02/24/19 20:54 Urine Culture - Final Urine, Clean Catch Culture exhibits no growth. 02/24/19 22:36 Gram Stain - Final Drainage Tube Laboratory Tests Past 24 Hrs 02/24/19 02/26/19 02/26/19 19:15 05:30 05:30 WBC 12.3 H RBC 3.21 L Hgb 9.7 L Hct 29.4 L MCV 91.6 MCH 30.2 MCHC 33.0 RDW Std Deviation 64.0 H RDW Coeff of Dafne 18.9 H Plt Count 326 MPV 9.3 Immature Gran % (Auto) 1.100 H Neut % (Auto) 83.9 H Lymph % (Auto) 6.7 L O'Brien % (Auto) 7.7 Eos % (Auto) 0.2 Baso % (Auto) 0.4 Absolute Neuts (auto) 10.4 H Absolute Lymphs (auto) 0.83 Nucleated RBC % 0 Diff Path Review Reviewed Sodium 140 Potassium 3.4 L Chloride 107 Carbon Dioxide 26.0 Anion Gap 7 BUN 10 Creatinine 0.56 Estim Creat Clear Calc 37.81 Est GFR (MDRD) Af Amer 138 Est GFR (MDRD) Non-Af 114 BUN/Creatinine Ratio 18.0 Glucose 73 L Calcium 8.7 Medical Necessity - Tobacco Use Smoking Status: Never smoker Route of nutrition/ use of supplements: [] Nutritional Intake: [] IV Site: [] Coles Catheter: [] - Assessment/Plan Antibiotics: [] Assessment/Plan: [] Active and Suspected Problems (Last Reviewed 02/25/19 @ 00:48 by Ramiro Blanc MD) Biliary tract infection (Acute) Fever at home with recent chemo, port and biliary drain in place - drain cx showing GPCs on gram stain but this is not a sterile source. On zosyn. Ok for home on 4 days of po levaquin 500mg qday. Will follow, d/w Dr. Neff
--- NOTE | 2019-02-26 10:48 | DCINST_ITS ---
- Discharge Diagnoses Current Active Problems: Current Active and Chronic Problems (Last Reviewed 02/25/19 @ 00:48 by Ramiro Blanc MD) Biliary tract infection (Acute) You will use the following diet at home:: Cardiac Your food should be the consistency of: Regular Your liquids should be the consistency of: Regular/Thin Weight Bearing Status: Weight bearing as tolerated Call your doctor if your incision/area has: Increased Pain/ Swelling, Increased Redness, Foul Smelling Discharge Call your doctor if you observe: Fever of 101 or Higher, - - worsening abdominal pain Additional Instructions: follow up with oncology- Dr Rolon to reschedule chemotherapy Allergies/Adverse Reactions: Allergies magnesium Allergy (Verified 02/24/19 18:16) Nausea Sulfa (Sulfonamide Antibiotics) Allergy (Verified 02/24/19 18:17) rash hives Medications to take at Discharge diphenoxylate-atropine 2.5 mg-0.025 mg tablet 1 tab PO Q6H PRN tab 04/09/18 gabapentin 300 mg capsule 300 mg PO BID #60 cap 04/09/18 Acetaminophen/Diphenhydramine [Tylenol Pm Ex-Strength Caplet] 1 ea PO QHS 02/24/19 Cholecalciferol (Vitamin D3) [Vitamin D3] 5,000 unit PO DAILY 02/24/19 Fexofenadine/Pseudoephedrine [Tania-D 24 Hour Tablet] 1 ea PO DAILY 02/24/19 Levothyroxine Sodium [Synthroid] 75 mcg PO DAILY 02/24/19 Loperamide [Imodium] 2 mg PO Q2H PRN PRN 02/24/19 Multivitamin [Daily Multiple Vitamin] 1 ea PO DAILY 02/24/19 Omeprazole 20 mg PO DAILY 02/24/19 Ondansetron HCl 8 mg PO BID PRN 02/24/19 Potassium Chloride 20 meq PO DAILY 02/24/19 Senna [Senokot] 1 tab PO DAILY 02/24/19 Sod Phos Di, [place]/K Phos [place] [Phospha 250 Neutral Tablet] 250 mg PO BID 02/24/19 Vitamin B Complex [B Complex] 1 ea PO DAILY 02/24/19 proCHLORPERazine tablet [Compazine tablet] 10 mg PO Q6H PRN PRN 02/24/19 Oxycodone HCl/Acetaminophen [Percocet 5-325] 5 - 325 mg PO BID PRN 02/25/19 Metoclopramide [Reglan] 10 mg PO BID PRN 02/26/19 levoFLOXacin tablet [Levaquin tablet] 500 mg PO DAILY #4 tab 02/26/19 The following prescriptions were given: levoFLOXacin tablet [Levaquin tablet] 500 mg PO DAILY #4 tab Transmission Status: Pending to [id number] Primary Care Physician: Georgie Ewing MD [Primary Care Provider] - Please follow up with your Primary Care Physician in: 1-2 weeks Test Results: Test results from this visit will be discussed in further detail at your follow- up appointment, if applicable. Please Follow Up With: Ruddy Rolon DO When: 1-2 weeks Please Follow Up With: Faizan Levin MD When: 1-2 weeks Proposed Discharge Date: 02/26/19
--- NOTE | 2019-02-26 10:50 | PCM.DC.SUM ---
Discharge Date and Diagnosis Date of Admission: 02/24/19 Date of Discharge: 02/26/19 - Primary Discharge Diagnosis Active and Suspected Problems (Last Reviewed 02/25/19 @ 00:48 by Ramiro Blanc MD) Biliary tract infection (Acute) Hospital Course and Treatment Imaging Results: Diagnostic Data Abdomen/Pelvis CT 02/24/19 18:35 IMPRESSION: 1. No bowel obstruction or acute inflammatory process. 2. Hepatic and splenic masses compatible with metastasis. 3. Small right pleural effusion. 4. Cholecystostomy tube with nondistended gallbladder. 5. Nonobstructing left renal calculi. 6. Comparison no prior imaging studies recommended. Electronically Signed: Son Brooke MD (Brooks) at 20:36 EDT , Service support , Chest X-Ray 02/24/19 18:36 IMPRESSION: No airspace consolidation. Trace right pleural effusion. No comparison study. Electronically Signed: Son Brooke MD (Brooks) at 19:01 EDT , Service support , infectious disease- Dr Levin Operations: None Procedures: None Summary of Care Provided: The patient is a 74 year old F with a past medical history significant for metastatic ovarian cancer status post total abdominal salpingo-oophorectomy and chemotherapy. She was admitted through the ED on 02/24/2019 with a complaint of fever of 102 Fahrenheit. Fever had occurred at home and she had assisted chills, poor appetite and generalized weakness. Patient states she had a biliary tube placed about a year ago on account of gallbladder infection and says the tube were changed every 6 weeks. Patient is a gallbladder was not removed at the time of the gallbladder infection because there was concern that the cancer would spread. She also stated that every time she had the biliary tube change she always got an infection. During this admission, she admitted to having recently had a biliary tube changed and subsequently she developed a fever and was put on p.o. ciprofloxacin and then subsequently IV and then p.o. Levaquin by her oncologist. She also stated she had received Neulasta about 2 weeks prior to admission. In the ED, she was found to have elevated white cell count and bandemia and she was started on IV vancomycin and Zosyn. General surgery was consulted about biliary tube but decided on conservative management for now. Patient's white cell count trended down and she did not have any fever during this admission. Infectious disease was also consulted. Wound swab outside of biliary tube showed 2+ cocci on Gram stain and wound culture showed 3+ coagulase negative staph. Urine culture showed no growth and blood culture was pending at time of discharge. Patient remained afebrile and stable and was discharged 07/07/2018 with a prescription for p.o. Levaquin for 4 more days per ID. She is to follow-up with her oncologist and primary care doctor as well as infectious disease. Patient seen and examined prior to discharge. She complained of some abdominal pain due to constipation but this was relieved with bowel movement. She denied any fever or chills and denied any discharge from the biliary tube site. Review of systems is otherwise negative. Labs and vitals reviewed. Home medications reviewed and reconciled. o/e: Vital Signs Height 5 ft 2 in Weight: 105 lb 6.095 oz Weight in Pounds 105.4 lbs Pulse Ox 99 Temperature 99.1 F Pulse Rate 72 Respiratory Rate 16 Blood Pressure 93/53 Blood Pressure Position Semi-Fowlers [] General: Alert, Oriented x3, Cooperative, No apparent distress HEENT: Atraumatic, PERRLA, EOMI, Normocephalic Oral: Moist Mucosa Neck: Supple, No JVD, Negative Carotid Bruits Lungs: Clear to auscultation, Normal air movement Cardiovascular: Regular rate, Regular Rhythm, Normal S1, Normal S2, No murmurs Abdomen: Bowel Sounds Present, Soft, Non Tender, Non-Distended, No Hepato-splenomegaly, - - biliary tube in place Extremities: No clubbing, No cyanosis, No edema, Capillary Refill Less than 3 Seconds Skin: No rashes, No breakdown Musculoskeletal: No Tenderness to Palpation of Joints or Extremities Lymphatic: No Cervical, Supraclavicular, or Inguinal Adenopathy Neurological: Cranial nerves II-XII grossly intact, Neuro grossly intact, Motor Exam 5/5 strength throughout Psych/Mental Status: Normal Affect, Appropriate, Alert and oriented to time, place, person, mood and affect Patient was given a prescription for p.o. Levaquin 500 mg daily for 4 days. - Physical Exam Vital Signs Temp Pulse Resp BP Pulse Ox 99.1 F 84 16 107/61 94 02/26/19 07:55 02/26/19 07:55 02/26/19 07:55 02/26/19 07:55 02/26/19 07:55 Oxygen Delivery Method Room Air Weight: 105 lb 6.095 oz Body Mass Index (BMI) 19.3 Intake and Output for Last 24 Hours 02/24/19 02/25/19 02/26/19 23:59 23:59 23:59 Intake Total / 100.00 / 100.00 Balance 100.00 / 100.00 Microbiology Past 72 Hours 02/24/19 20:54 Urine Culture - Final Urine, Clean Catch Culture exhibits no growth. 02/24/19 22:36 Gram Stain - Final Drainage Tube Laboratory Tests Past 24 Hrs 02/24/19 02/26/19 02/26/19 19:15 05:30 05:30 WBC 12.3 H RBC 3.21 L Hgb 9.7 L Hct 29.4 L MCV 91.6 MCH 30.2 MCHC 33.0 RDW Std Deviation 64.0 H RDW Coeff of [place] 18.9 H Plt Count 326 MPV 9.3 Immature Gran % (Auto) 1.100 H Neut % (Auto) 83.9 H Lymph % (Auto) 6.7 L [place] % (Auto) 7.7 Eos % (Auto) 0.2 Baso % (Auto) 0.4 Absolute Neuts (auto) 10.4 H Absolute Lymphs (auto) 0.83 Nucleated RBC % 0 Diff Path Review Reviewed Sodium 140 Potassium 3.4 L Chloride 107 Carbon Dioxide 26.0 Anion Gap 7 BUN 10 Creatinine 0.56 Estim Creat Clear Calc 37.81 Est GFR (MDRD) Af Amer 138 Est GFR (MDRD) Non-Af 114 BUN/Creatinine Ratio 18.0 Glucose 73 L Calcium 8.7 Discharge Diet: Low fat/ Low Cholesterol Weight Bearing Status: Weight bearing as tolerated Call your doctor if your incision/area has: Increased Pain/ Swelling, Increased Redness, Foul Smelling Discharge Call your doctor if you observe: Fever of 101 or Higher, - - worsening abdominal pain Home Medications: Medications to take at Discharge diphenoxylate-atropine 2.5 mg-0.025 mg tablet 1 tab PO Q6H PRN tab 04/09/18 gabapentin 300 mg capsule 300 mg PO BID #60 cap 04/09/18 Acetaminophen/Diphenhydramine [Tylenol Pm Ex-Strength Caplet] 1 ea PO QHS 02/24/19 Cholecalciferol (Vitamin D3) [Vitamin D3] 5,000 unit PO DAILY 02/24/19 Fexofenadine/Pseudoephedrine [Tania-D 24 Hour Tablet] 1 ea PO DAILY 02/24/19 Levothyroxine Sodium [Synthroid] 75 mcg PO DAILY 02/24/19 Loperamide [Imodium] 2 mg PO Q2H PRN PRN 02/24/19 Multivitamin [Daily Multiple Vitamin] 1 ea PO DAILY 02/24/19 Omeprazole 20 mg PO DAILY 02/24/19 Ondansetron HCl 8 mg PO BID PRN 02/24/19 Potassium Chloride 20 meq PO DAILY 02/24/19 Senna [Senokot] 1 tab PO DAILY 02/24/19 Sod Phos Di, [place]/K Phos [place] [Phospha 250 Neutral Tablet] 250 mg PO BID 02/24/19 Vitamin B Complex [B Complex] 1 ea PO DAILY 02/24/19 proCHLORPERazine tablet [Compazine tablet] 10 mg PO Q6H PRN PRN 02/24/19 Oxycodone HCl/Acetaminophen [Percocet 5-325] 5 - 325 mg PO BID PRN 02/25/19 Metoclopramide [Reglan] 10 mg PO BID PRN 02/26/19 levoFLOXacin tablet [Levaquin tablet] 500 mg PO DAILY #4 tab 02/26/19 Following Prescrptions Were Given to Patient: levoFLOXacin tablet [Levaquin tablet] 500 mg PO DAILY #4 tab Transmission Status: Received by [employer] [id number] Primary Care Physician: Georgie Ewing MD [Primary Care Provider] - Please follow up with your Primary Care Physician in: 1-2 weeks Please Follow Up With: Ruddy Rolon DO When: 1-2 weeks Please Follow Up With: Faizan Levin MD When: 1-2 weeks Disposition: Home Minutes spent on discharge:: 35 Patient Condition:: Stable Medical Necessity - Tobacco Use Smoking Status: Never smoker Meaningful Use Info Meaningful Use Diagnoses (Choose all that apply): None applicable Code Visit Inpatient E&M: 02162 Disch Hosp
--- NOTE | 2019-02-26 11:25 | PHA.DC.MC ---
Pharmacy Service has performed discharge medication reconciliation and counseling for this patient. The patient's discharge medication list was reviewed for discrepancies and discrepancies were resolved. The patient was counseled on the following discharge medications and changes in medications for homegoing were reviewed. 1. LEVOFLOXACIN 500MT PO DAILY X4 DAYS The Reason for Use, instructions for use, and potential side effects were reviewed for all new medications. The patient's questions regarding all of their medications were answered. The patient was able to verbally demonstrate an understanding of their discharge medications. Home Medications diphenoxylate-atropine 2.5 mg-0.025 mg tablet 1 tab PO Q6H PRN tab 04/09/18 gabapentin 300 mg capsule 300 mg PO BID #60 cap 04/09/18 Acetaminophen/Diphenhydramine [Tylenol Pm Ex-Strength Caplet] 1 ea PO QHS 02/24/19 Cholecalciferol (Vitamin D3) [Vitamin D3] 5,000 unit PO DAILY 02/24/19 Fexofenadine/Pseudoephedrine [Tania-D 24 Hour Tablet] 1 ea PO DAILY 02/24/19 Levothyroxine Sodium [Synthroid] 75 mcg PO DAILY 02/24/19 Loperamide [Imodium] 2 mg PO Q2H PRN PRN 02/24/19 Multivitamin [Daily Multiple Vitamin] 1 ea PO DAILY 02/24/19 Omeprazole 20 mg PO DAILY 02/24/19 Ondansetron HCl 8 mg PO BID PRN 02/24/19 Potassium Chloride 20 meq PO DAILY 02/24/19 Senna [Senokot] 1 tab PO DAILY 02/24/19 Sod Phos Di, [place]/K Phos [place] [Phospha 250 Neutral Tablet] 250 mg PO BID 02/24/19 Vitamin B Complex [B Complex] 1 ea PO DAILY 02/24/19 proCHLORPERazine tablet [Compazine tablet] 10 mg PO Q6H PRN PRN 02/24/19 Oxycodone HCl/Acetaminophen [Percocet 5-325] 5 - 325 mg PO BID PRN 02/25/19 Metoclopramide [Reglan] 10 mg PO BID PRN 02/26/19 levoFLOXacin tablet [Levaquin tablet] 500 mg PO DAILY #4 tab 02/26/19
[2019-02-26 12:03] VITALS: BP 93/53; PULSE 72; RESP 16; O2SAT 99
== END 2019-02-26 12:03 | disposition home or self-care (01) | DRG 920 ==
LOC: ED 20:33 → PCU 23:23
PROVIDERS: Admitting Provider Hospitalist; Emergency Provider Emergency Medicine; Family Provider Family Medicine; PCP Family Medicine; Referring Provider Hospitalist; Visit Provider Student in an Organized Health Care Education/Training Program
DX: T85.79XA Infection and inflammatory reaction due to other internal prosthetic devices, implants and grafts, initial encounter (principal); C56.9 Malignant neoplasm of unspecified ovary; E34.0 Carcinoid syndrome; C79.9 Secondary malignant neoplasm of unspecified site; E87.6 Hypokalemia; G47.00 Insomnia, unspecified; K52.9 Noninfective gastroenteritis and colitis, unspecified; E03.9 Hypothyroidism, unspecified; Z79.899 Other long term (current) drug therapy; Z90.710 Acquired absence of both cervix and uterus; Z90.722 Acquired absence of ovaries, bilateral
CPT/HCPCS: 71045; 74177; 80048; 80053; 81001; 83605; 83735; 85025; 85610; 85730; 87040; 87070; 87077; 87086; 87186; 87205; 87640; 93005; 99284; J7030; J7050; J7120; Q9967; A4216; J2405

== ENCOUNTER → 2019-05-03 11:07 | Outpatient (CLI) | payer MEDICARE, OTHER, SELFPAY ==
[2019-02-24 23:14] VITALS: BMI 19.3
[2019-05-03] VITALS (7 sets, daily range): BP systolic 87–101; BP diastolic 49–60; PULSE 75–95; RESP 16–18; TEMP 35.8–36.7; O2SAT 99–100; BMI 16.5
[2019-05-03] MEDS: Acetaminophen 500 MG Tablet 1000 MG PO (12:12)
== END ==
PROVIDERS: Family Provider Family Medicine; PCP Family Medicine; Referring Provider Internal Medicine Hematology & Oncology; Visit Provider Internal Medicine Hematology & Oncology
DX: Z51.89 Encounter for other specified aftercare (principal); D61.9 Aplastic anemia, unspecified
CPT/HCPCS: 36430; 86850; 86900; 86901; 86920; 86922; J7040; P9016; A4216

== ENCOUNTER → 2019-06-21 08:50 | Outpatient (CLI) | payer MEDICARE, OTHER, SELFPAY ==
[2019-05-03 11:22] VITALS: BMI 16.5
[2019-06-21] VITALS (9 sets, daily range): BP systolic 94–116; BP diastolic 51–67; PULSE 71–90; RESP 16–18; TEMP 36.3–37.1; O2SAT 95–100; BMI 16.5
[2019-06-21] MEDS: Acetaminophen 325 MG Tablet 650 MG PO (09:21)
== END ==
PROVIDERS: Family Provider Family Medicine; PCP Family Medicine; Referring Provider Internal Medicine Hematology & Oncology; Visit Provider Internal Medicine Hematology & Oncology
DX: Z51.89 Encounter for other specified aftercare (principal); C56.9 Malignant neoplasm of unspecified ovary
CPT/HCPCS: 36430; 86850; 86900; 86901; 86920; 86922; J7040; P9016; A4216

== ENCOUNTER → 2019-10-11 | Outpatient (CLI) | payer MEDICARE, OTHER, SELFPAY ==
[2019-06-21 09:11] VITALS: BMI 16.5
[2019-10-11 11:05] LABS: Prothrombin Time (Protime)PT. 12.2 SECONDS (11.7-14.9)
== END | disposition home or self-care (01) ==
LOC: LABSPEC 10:49
PROVIDERS: PCP Family Medicine; Referring Provider Internal Medicine Hematology & Oncology; Visit Provider Internal Medicine Hematology & Oncology
DX: C56.1 Malignant neoplasm of right ovary (principal); C56.2 Malignant neoplasm of left ovary; C78.00 Secondary malignant neoplasm of unspecified lung; J90 Pleural effusion, not elsewhere classified; R79.1 Abnormal coagulation profile
CPT/HCPCS: 85610